=== PATIENT | male | born 1960 | race Caucasian/White ===

== ENCOUNTER 2025-03-11 06:15 | Observation (INO) ==
--- NOTE | 2025-02-19 09:21 | PAT Medication Instructions ---
Medication Instructions Date of Service February 19, 2025 Home Medications cholecalciferol (vitamin D3) 50 mcg (2,000 unit) capsule 50 mcg PO QAM gabapentin 300 mg capsule 1,200 mg PO HS magnesium 250 mg tablet 250 mg PO QAM omega 6-zew-dvj-fish oil 300 mg-1,000 mg capsule (Fish Oil) 1 cap PO QAM pyridoxine (vitamin B6) 100 mg tablet 100 mg PO QAM risankizumab-rzaa 150 mg/mL subcutaneous pen injector (Skyrizi) 150 mg subcut UD ASK your prescriber and surgeon risankizumab-rzaa 150 mg/mL subcutaneous pen injector (Skyrizi) 150 mg subcut UD STOP taking 2 weeks before surgery (or as soon as possible if surgery is within 2 weeks) omega 7-pzb-ibi-fish oil 300 mg-1,000 mg capsule (Fish Oil) 1 cap PO QAM DO NOT take the morning of surgery cholecalciferol (vitamin D3) 50 mcg (2,000 unit) capsule 50 mcg PO QAM magnesium 250 mg tablet 250 mg PO QAM pyridoxine (vitamin B6) 100 mg tablet 100 mg PO QAM Take evening before surgery gabapentin 300 mg capsule 1,200 mg PO HS MORNING OF SURGERY: NOTHING TO EAT OR DRINK AFTER MIDNIGHT Other Notes If you have any questions please call us at [phone] or [phone] or [phone] or [phone]
--- NOTE | 2025-02-28 08:45 | Anesthesiology Consultation ---
Date of Service February 28, 2025 Assessment & Plan (1) Encounter for pre-operative examination: - Infectious disease screening: Per assessment on 02/28/25- No known recent infectious disease contacts or current infectious disease symptoms. - S/P Left ESWL (11/23/24): LMA#5, [facility] - Acceptable risk for surgery pending surgeon-ordered PCP preop evaluation (Dr. Black, appt 02/28). Chart Review Chart Review: Patient seen in Pre Admission Testing Teaching & Discussion Pre-Anesthesia Teaching/Discussion Notes: Instructed NPO after midnight before surgery,except medications with 15 cc of water. Medication instructions provided according to the PAT guidelines. History Surgery Operation Date: 03/11/25 07:45 Proposed Procedures p C5-C6 Anterior Cervical Discectomy and Fusion - Benji Doll DO Height/Weight Height: 6 ft 3 in Weight: 108.7 kg Allergies Allergy/AdvReac Type Severity Reaction Status Date / Time iodine Allergy Mild Itching Verified 02/15/25 08:58 shellfish derived Allergy Mild Itching Verified 02/15/25 08:58 Medications Home Medications Medication Instructions Recorded Confirmed Last Taken cholecalciferol (vitamin D3) 50 50 mcg PO QAM 11/21/24 02/15/25 11/21/24 mcg (2,000 unit) capsule gabapentin 300 mg capsule 1,200 mg PO HS 11/21/24 02/15/25 11/22/24 magnesium 250 mg tablet 250 mg PO QAM 11/21/24 02/15/25 11/21/24 omega 6-nkq-grd-fish oil 300 1 cap PO QAM 11/21/24 02/15/25 11/21/24 mg-1,000 mg capsule (Fish Oil) pyridoxine (vitamin B6) 100 mg 100 mg PO QAM 11/21/24 02/15/25 11/21/24 tablet risankizumab-rzaa 150 mg/mL 150 mg subcut UD 02/15/25 02/15/25 Unknown subcutaneous pen injector (Saharayrizi) Past Medical History Medical History Arthritis Chronic back pain Hyperlipidemia Per PCP records Kidney stone Psoriasis Psoriatic arthritis Exercise / Class Metabolic Activity II 4-5 Yardwork/Stairs/Walk up hill Past Family History Family History Other No family history of adverse response to anesthesia Past Surgical History Surgical History H/O lumbar discectomy History of cataract surgery R/L History of cholecystectomy History of cystoscopy History of extracorporeal shockwave lithotripsy (ESWL) Left ESWL: LMA#5, [facility] (11/23/24) History of tonsillectomy and adenoidectomy History of tooth extraction S/P cervical spinal fusion x3 levels S/P epidural steroid injection Status post laser lithotripsy of ureteral calculus Past Anesthesia History No Family Hx of Anesthesia Complications and Other (Slow to wake with remote surgery, no issues with subsequent surgery/anesthesia) History of PONV No Hx of PONV and Hx of Motion Sickness Social History Smoking Status: Never smoker Do You Dip or Chew Tobacco: No Hx Alcohol Use: Yes Alcohol type: beer (2-3 drinks per day on average) Hx Substance Use: No substance use type: does not use Review of Systems Patient denies chest pain, shortness of breath, dyspnea on exertion, reflux, cough, wheezing. Physical Exam Vital Signs BP 149/85 P 62 TEMP 97.7 SP02 96%RA RESP 16 Physical Mildly decreased cervical extension range of motion. Full TMJ range of motion. TMD 3 finger breaths Mallampati Score III Dentition: intact, + implants Lungs: clear throughout to auscultation Cardiac: regular rate and rhythm, no murmurs noted Spine: normal Carotid arteries: negative bruit Extremities: no LE edema Lab Results Anesthesia Preop Results Results Anesthesia Widget: WBC 4.16 K/ul (4.8-10.8) L 02/28/25 Hgb 14.7 g/dl (14.0-18.0) 02/28/25 Hct 44.5 % (42.0-52.0) 02/28/25 Plt 225 K/uL (130-400) 02/28/25 Na 139 mmol/L (136-145) 02/28/25 K 4.4 mmol/L (3.5-5.1) 02/28/25 Cl 106 mmol/L (98-107) 02/28/25 CO2 27 mmol/L (21-32) 02/28/25 BUN 17 mg/dl (6-23) 02/28/25 Creat 1.14 mg/dl (0.6-1.4) 02/28/25 Glucose Level 112 mg/dl (70-99(Fasting)) H 02/28/25 PT 10.1 Seconds (9.0-12.0) 02/28/25 PTT 28 Seconds (21-31) 02/28/25 INR 1.0 (0.9-1.1) 02/28/25 Urine Color Yellow 02/28/25 Urine Appearance Clear (Clear) 02/28/25 Urine pH 8.0 (4.5-7.5) H 02/28/25 Urine Specific [place] 1.009 (1.000-1.030) 02/28/25 Urine Protein Negative (Negative) 02/28/25 Urine Glucose (UA) Negative (Negative) 02/28/25 Urine Ketones Negative (Negative) 02/28/25 Urine Blood Negative (Negative) 02/28/25 Urine Nitrite Negative (Negative) 02/28/25 Urine Bilirubin Negative (Negative) 02/28/25 Urine Urobilinogen Negative (Negative) 02/28/25 Urine Leukocyte Esterase Negative (Negative) 02/28/25 Blood Type A Negative 02/28/25 Antibody Screen NEGATIVE 02/28/25 Testing Electrocardiogram Date: 11/21/24 SB at 54bpm. "Otherwise normal ECG" Chest X-Ray Date: 11/21/24 Findings: + NAD
[2025-03-11] MEDS ORDERED: LIDOCAINE 2% 2 ML VIAL/AMP(20MG/ML) INFIL ONE (06:30)
[2025-03-11] MEDS ORDERED: PROPOFOL IV EMULSION 10 MG/ML 20 ML VIAL IV ONE (06:30)
[2025-03-11] MEDS ORDERED: ROCURONIUM BROMIDE 10 MG/ML 5 ML VIAL IV ONE ×2 (06:30→07:56)
[2025-03-11] MEDS ORDERED: MIDAZOLAM HCL 1 MG/ML 2ML VIAL ONE (06:31)
[2025-03-11] MEDS ORDERED: DROPERIDOL 5 MG/2 ML VIAL IV PRN (06:58)
[2025-03-11] MEDS ORDERED: HYDROmorphone INJ 2 MG/ML SYR/VIAL IV PRN (06:58)
[2025-03-11] MEDS ORDERED: ATROPINE SULFATE 0.1 MG/ML 10ML SYR IV PRN (06:58)
[2025-03-11] MEDS: LR 60ML/HR IV SCH (07:00)
[2025-03-11] MEDS: LR 15ML/HR IV SCH (07:00)
[2025-03-11] MEDS: GABAPENTIN 600 MG DOSE PO SCH (07:04)
[2025-03-11] MEDS: ACETAMINOPHEN 500 MG TAB PO SCH (07:04)
[2025-03-11] MEDS: CeleBREX 200 MG CAP PO SCH (07:04)
--- NOTE | 2025-03-11 07:44 | History & Physical Bridge Note ---
Date of Service March 11, 2025 History & Physical Bridge Note I have examined the patient, reviewed the History & Physical and in the interval since the performance of the History & Physical I have noted the following changes of clinical significance: no changes noted
--- NOTE | 2025-03-11 07:45 | History & Physical Report ---
Date of Service March 11, 2025 Assessment & Plan (1) Cervical spondylosis with radiculopathy: Plan: Anterior cervical discectomy and fusion C5-C6 History of Present Illness Chief Complaint: Neck and arm pain Primary Care Provider: Jalyn Black This is a 64-year-old male who presents with chronic persistent neck and arm pain after failing course of nonoperative care is here for surgical invention. Allergies Allergy/AdvReac Type Severity Reaction Status Date / Time iodine Allergy Mild Itching Verified 03/11/25 06:20 shellfish derived Allergy Mild Itching Verified 03/11/25 06:20 Home Medications Medication Instructions Recorded Confirmed Type cholecalciferol (vitamin D3) 50 50 mcg PO QAM 11/21/24 03/11/25 History mcg (2,000 unit) capsule gabapentin 300 mg capsule 1,200 mg PO HS 11/21/24 03/11/25 History magnesium 250 mg tablet 250 mg PO QAM 11/21/24 03/11/25 History omega 0-jhx-ulr-fish oil 300 1 cap PO QAM 11/21/24 03/11/25 History mg-1,000 mg capsule (Fish Oil) pyridoxine (vitamin B6) 100 mg 100 mg PO QAM 11/21/24 03/11/25 History tablet Past Med/Surg History Problem List (Updated 03/11/25 @ 07:45 by Benji Doll DO) Cervical spondylosis with radiculopathy Encounter for pre-operative examination Nephrolithiasis (Chronic) Medical History Arthritis Chronic back pain Hyperlipidemia Per PCP records Kidney stone Psoriasis Psoriatic arthritis Surgical History H/O lumbar discectomy History of cataract surgery R/L History of cholecystectomy History of cystoscopy History of extracorporeal shockwave lithotripsy (ESWL) Left ESWL: LMA#5, [facility] (11/23/24) History of tonsillectomy and adenoidectomy History of tooth extraction S/P cervical spinal fusion x3 levels S/P epidural steroid injection Status post laser lithotripsy of ureteral calculus Family History Other No family history of adverse response to anesthesia Social History Smoking Status: Never smoker Second Hand Exposure: Yes (in the past); Do You Dip or Chew Tobacco: No; Tobacco Cessation Education Requested by Patient: No Hx Alcohol Use: Yes Alcohol type: beer (2-3 drinks per day on average) Hx Substance Use: No Preferred Language: Wolof Communication Ability: Effective End Worker Required: No Beliefs That Will Affect Care: None Current Living Situation: Spouse Other Information That Helps Us Care for You: No Feels Safe at Home: Yes Safety Concerns: Feels Safe At This Time Assistive Devices: Glasses Physical Exam Physical Exam: Patient is alert and oriented Heart regular rhythm Lungs clear Results & Data Results & Data Vital Signs (Past 12 Hours) Vital Signs Temp Pulse Resp BP Pulse Ox O2 Del Method 03/11/25 06:34 36.6 C 68 20 148/95 H 99 Room Air
[2025-03-11] MEDS ORDERED: DEXAMETHASONE SOD INJ 4 MG/ML VIAL ONE ×2 (08:30)
[2025-03-11] MEDS ORDERED: ONDANSETRON INJ 2 MG/ML 2 ML VIAL ONE (08:30)
[2025-03-11] MEDS: FLOSEAL HEMOSTATIC MATRIX 10ML TOP ONE (08:52)
[2025-03-11] MEDS: ceFAZolin 330 MG/ML 1 GM VIAL ONE (08:53)
[2025-03-11] MEDS ORDERED: SUGAMMADEX SODIUM 200 MG/2 ML VIAL IV ONE (08:57)
--- NOTE | 2025-03-11 09:06 | Operative Report ---
Post Operative Report Pre & Post Diagnosis Operation Date: 03/11/25 07:45 Pre-Op Diagnosis: Cervical spondylosis with radiculopathy Post-Op Diagnosis: Cervical spondylosis with radiculopathy I identified the patient and participated in the time-out.: Yes Procedure Operation Date: 03/11/25 07:45 Actual Procedures #1 anterior cervical discectomy with bilateral foraminotomies C5-C6. #2 anterior cervical arthrodesis C5-C6. #3 placement of Spira integrated 8 mm cage filled with os design bone graft Surgeon Benji Doll DO Supervisor Crack Off Lynda Greco Estimated Blood Loss 50 Findings Consistent with Post-Op Diagnosis Specimens None Indications This is a 64-year-old male presents publish diagnosis of failed course of nonoperative care is here for surgical invention. Description of Procedure Patient was met with identified informed consent obtained. Patient was then taken to the operative suite underwent patient placed in supine position on the Gamal table with head Cole grease maker head. Open prominences well-padded eyes inspected to ensure no external pressure placed upon them. This point the anterior cervical spine was prepped and draped in normal sterile fashion. With assistance of fluoroscopy identified the C5-C6 disc base and a transverse incision was placed on the right anterior aspect of the cervical spine overlying this region. Blunt dissection with the assistance of bipolar electrocautery performed down to and exposing the level of C5-C6. A self retaining retractor was placed. And then performed a complete discectomy of C5-C6 out to the uncovertebral joints bilaterally. [place] distracting pins utilized to assist in visualization. Removed all posterior annular fibers longitudinal ligament bilateral foraminotomies performed. Endplates burred to subcortical bleeding bone and eight 8 mm Spira integrated cage placed and screwed into position. This was packed with os design bone graft. Incision was then copiously irrigated explored to ensure no damage to surrounding structures remaining bleeding. 10 round CHERELLE drain inserted. The incision was then closed with 2 Vicryl in the fascia and a 4 Monocryl for final skin closure. Steri-Strips and sterile dressing placed. Patient waken taken to PACU in stable condition. Please note Lynda Greco was present at the entire procedure and on the patient positioning complex portion of the surgery and final skin closure. Im ordering 10 grams of Collagen Powder ([facility] A6010 Primary Dressing) and 10 bordered super absorbent ([facility] A6196 Secondary Dressing) to treat an incision wound that was caused by a spine procedure. The incision is approximately 2 cm(W) x 4 cm(L) down to the spinal column and epidural space 2 cm (D) in size and is a full thickness wound showing no signs of infection. Collagen comes in 1 gram packets so 10 packets were ordered. Given the size of the wound, with moderate exudate I chose to order a 10 day supply. The patient will be provided instructions for proper application of the collagen wound kit. The patient will be asked to apply the collagen powder daily and then cover it with sterile dressings dispensed. Collagen was selected as I expect the collagen to attract monocytes and fibroblasts, act as a sacrificial substrate for MMPs, and ultimately proved a matrix for tissue and vessel growth. The collagen will act as a primary dressing in this scenario. It is medically necessary for proper healing of these wounds to improve bioavailability and contact with each wound surface, this is also to help prevent infection of wounds and promote healing ultimately leading to a better healing outcome and limit the risk of infection. I attest to the content of the Intraoperative Record and any orders documented therein. Any exceptions are noted below.
[2025-03-11] MEDS ORDERED: diphenhydrAMINE Capsule 25 MG CAP PO PRN (11:03)
[2025-03-11] MEDS ORDERED: dexAMETHasone 8 MG in SYRINGE 0 ML IV PRN (11:03)
[2025-03-11] MEDS ORDERED: ACETAMINOPHEN 500 MG TAB PO PRN (11:03)
[2025-03-11] MEDS ORDERED: SOD PHOSPHATE/SOD BIPHOSPHATE ENEMA 132 ML BTL PR PRN (11:03)
[2025-03-11] MEDS ORDERED: DO NOT ADMINISTER PNEUMOCOCCAL VACCINE PRN (11:03)
[2025-03-11] MEDS ORDERED: DO NOT ADMINISTER FLU VACCINE PRN (11:03)
[2025-03-11] MEDS ORDERED: MAGNESIUM HYDROXIDE SUSP 30 ML UDC PO PRN (11:03)
[2025-03-11] MEDS ORDERED: HYDROmorphone INJ 1 MG/ML SYRINGE IV PRN (11:03)
[2025-03-11] MEDS ORDERED: LORazepam 0.5 MG TAB PO PRN (11:03)
[2025-03-11] MEDS ORDERED: HYDROmorphone INJ 0.5 MG/0.5 ML SYR IV PRN (11:03)
[2025-03-11] MEDS ORDERED: ONDANSETRON INJ 2 MG/ML 2 ML VIAL IV PRN (11:03)
[2025-03-11] MEDS ORDERED: ACETAMINOPHEN 1,000 MG/100 ML VIAL IV PRN (11:03)
[2025-03-11] MEDS ORDERED: FAMOTIDINE 20 MG TAB PO PRN (11:03)
[2025-03-11] MEDS ORDERED: ONDANSETRON 4 MG OD TAB PO PRN (11:03)
[2025-03-11] MEDS ORDERED: ALUMINUM/MAGNESIUM SUSP 30 ML UDC PO PRN (11:03)
[2025-03-11] MEDS ORDERED: LORazepam Inj 0.5 MG in SYRINGE 0.25 ML IV PRN (11:03)
[2025-03-11] MEDS ORDERED: METOCLOPRAMIDE HCL INJ 5 MG/ML 2 ML VIAL IV PRN (11:03)
[2025-03-11] MEDS ORDERED: RACEPINEPHRINE 2.25% NEBU SOLN 0.5 ML VIAL INH PRN (11:03)
[2025-03-11] MEDS ORDERED: PROMETHAZINE 12.5 MG/50.5 ML BAG IV PRN (11:03)
[2025-03-11] MEDS ORDERED: NALOXONE HCL 0.4 MG/1 ML VIAL/CARP IV PRN (11:03)
--- NOTE | 2025-03-11 11:10 | Fluoroscopy Report ---
FL cervical 2-3V CLINICAL HISTORY: ACDF C5-C6 COMPARISON STUDY: None FLUOROSCOPY TIME: 6 seconds FLUOROSCOPY IMAGES: 2 EXPOSURE DOSE: 0.6 mGy FINDINGS: Fluoroscopy was provided for lower cervical instrumented fusion. IMPRESSION: Intraoperative fluoroscopy. ACT 112: Negative or not required by law. Electronically signed by: Nadir Brunson M.D. 03/11/2025 11:09 AM
[2025-03-11] MEDS: SODIUM CHLORIDE 0.9% 1,000 ML IV SCH (11:40)
--- NOTE | 2025-03-11 12:40 | Anesthesiology Progress Note ---
Date of Service March 11, 2025 Anesthesia Post Procedure Vital Signs Vital Signs: Temp Pulse Pulse Resp BP Pulse Ox O2 Del Method 03/11/25 11:25 36.3 C L 77 15 137/82 93 Room Air 03/11/25 11:10 73 16 94 Room Air 03/11/25 11:00 36.2 C L 77 16 119/73 94 Room Air 03/11/25 10:55 36.3 C L 78 16 152/90 H 93 Room Air 03/11/25 10:45 70 14 142/77 H 96 Nasal Cannula 03/11/25 10:30 72 15 145/78 H 95 Nasal Cannula 03/11/25 10:20 74 15 153/81 H 96 Nasal Cannula 03/11/25 10:10 36.5 C 80 14 147/88 H 97 Nasal Cannula 03/11/25 10:00 72 15 139/82 96 Nasal Cannula 03/11/25 09:50 75 14 142/75 H 96 Nasal Cannula 03/11/25 09:40 84 16 143/81 H 98 Nasal Cannula 03/11/25 09:30 87 19 126/74 97 Nasal Cannula 03/11/25 09:23 36 C L 90 16 179/92 H 98 Nasal Cannula 03/11/25 06:34 36.6 C 68 20 148/95 H 99 Room Air O2 Flow Rate 03/11/25 11:25 03/11/25 11:10 03/11/25 11:00 03/11/25 10:55 03/11/25 10:45 03/11/25 10:30 03/11/25 10:20 03/11/25 10:10 03/11/25 10:00 03/11/25 09:50 03/11/25 09:40 3 03/11/25 09:30 3 03/11/25 09:23 3 03/11/25 06:34 Pain Intensity Bilateral Shoulder: Pain Intensity: 2 Neck: Pain Intensity: 2 Transfer of Care Handoff Completed per policy Notes Mental Status: alert / awake / arousable Patient Amnestic to Procedure: Yes Nausea / Vomiting: adequately controlled Pain: adequately controlled Airway Patency, RR, SpO2: stable & adequate BP & HR: stable & adequate Hydration State: stable & adequate Anesthetic Complications: no major complications apparent
[2025-03-11] MEDS: GABAPENTIN 400 MG CAP PO SCH (20:11)
[2025-03-11] MEDS: DOCUSATE SODIUM/SENNA 50/8.6MG TAB PO SCH (20:54)
[2025-03-12] MEDS: POLYETHYLENE (MIRALAX) 17 GM PACK PO SCH (06:05)
[2025-03-12 08:02] VITALS: BP 152/77; PULSE 73; RESP 18; TEMP 98.1; O2SAT 94
[2025-03-12] MEDS: PYRIDOXINE HCL 50 MG TAB PO SCH (09:14)
[2025-03-12] MEDS: CHOLECALCIFEROL 25 MCG (1000 UNITS) TAB PO SCH (09:15)
[2025-03-12] MEDS: MAGNESIUM OXIDE 400 MG TAB PO SCH (09:15)
[2025-03-12] MEDS: dexAMETHasone 6 MG in SYRINGE 0 ML IV SCH (09:16)
--- NOTE | 2025-03-12 09:38 | Discharge Summary ---
Date of Service March 12, 2025 Admission HPI Per Admitting Provider This is a 64-year-old male who presents with chronic persistent neck and arm pain after failing course of nonoperative care is here for surgical invention. Principal Diagnosis Cervical spondylosis with radiculopathy Discharge Data Allergies Allergy/AdvReac Type Severity Reaction Status Date / Time iodine Allergy Mild Itching Verified 03/11/25 06:20 shellfish derived Allergy Mild Itching Verified 03/11/25 06:20 Procedures Performed Operation Date: 03/11/25 07:45 Actual Procedures p C5-C6 Anterior Cervical Discectomy and Fusion(Not Applicable) - Benji Doll DO Ordered Studies 03/11/25 07:45 [place] cervical 2-3V Routine Hospital Course (1) Cervical spondylosis with radiculopathy: Patient underwent anterior cervical discectomy and fusion tolerated this well was taken to the orthopedic floor postoperative postop day #1 he is up and ambulating. Swallowing well. No hoarseness. Excellent strength testing. Pain well-controlled. CHERELLE drain decreasing. Subsequent discharge home. Discharge orders instructions from the chart for further review. Total Time Total Time Spent Total Time Spent (In Minutes): 20 minutes Discharge Plan Discharge Items Patient Disposition: Home - Self-Care Reason For Visit: Cervical Spondylosis, Cervical Disc Disease, Cervi Discharge Diagnosis: Cervical spondylosis with radiculopathy Activity: As commented below Non-emergency contact: Primary Care Provider Call non-emergency contact if: you have any medication questions Follow-up/Referrals: Jalyn Black D.O. [Primary Care Provider] - Diet: Regular Addtl Attending Provider Instructions: ACTIVITY RECOMMENDATIONS: SELF CARE INSTRUCTIONS AFTER CERVICAL FUSIONS 1. No smoking. Smoking drastically decreases the chance of a solid fusion. 2. No bending, lifting more than 5 pounds, or twisting (roll like a log when turning in bed). 3. You may shower 3 days after surgery. Thoroughly dry wound. Do not soak in the tub. 4. Cervical collar: Must be worn at all times including sleeping. You may remove the brace only to bath, eat and if you are sitting in a recliner. 5. Please walk as much as you can for exercise. Gradually increase the distance that you walk as your endurance increases. 6. You may return to previous diet. SPECIAL CARE INSTRUCTIONS: VERY IMPORTANT TO READ AND REVIEW A. Do not take any anti-inflammatory medications (i.e. Indocin, Advil, Aspirin, Naprosyn, Aleve, Motrin, etc.) as these may inhibit the chance of a solid fusion. Tylenol is okay to take. B. Your surgical incision has been closed with a cosmetic suture under the skin that will dissolve in about 6 weeks. In 14 days, you can use a pair of clean scissors and cut the suture that is left outside of the skin at the ends of your incision. C. Complications are uncommon, but please contact us if you have any signs or symptoms of: 1. wound infection (fever higher than 102.5 degrees F, redness, separation of wound, drainage, or increasing pain from the incision) 2. blood clots in legs (pain, swelling, redness and warmth in legs) 3. urinary tract infection (fever higher than 102.5 degrees, burning upon urination or increased frequency of urination) 4. nerve problems (inability to walk on your toes or heels, numbness, loss of bowel or bladder control) 5. any other symptoms that concern you. D. Please call the office at if you have any concerns or questions about your operation or recovery. MANAGING PAIN AFTER SPINAL SURGERY 1. Narcotic medication is intended for short-term use and will be provided for surgical pain. Surgical pain usually lasts for a period of 4-6 weeks. Narcotic medication includes Percocet, Vicodin, Darvocet, Tylenol #3 or Lortab. 2. Longer-term pain is more appropriately treated with non-narcotic medication such as Tylenol ES. 3. Muscle spasm is not appropriately treated with narcotics. Muscle relaxers such as Soma, Flexeril or Skelaxin can be used along with Tylenol ES. 4. Remember that we all live with some "aches and pains". This is not unusual or uncommon after an injury or as we get older. 5. We will provide appropriate medication within the normal guidelines of their prescribed use. We will also be very cautious and aware of potential abuse and extended duration of patients' medication needs. 6. Please allow 2-3 days to process refills. Prescriptions will not be mailed but must be picked up at the office. FOLLOW UP VISIT: Keep your scheduled follow-up appointment. Any questions, please call the office at . Pending Studies at Discharge: No Stand-Alone Forms: My [facility] [employer], Smoking Cessation Medications and DC Order Prescriptions: New tramadol 50 mg tablet 50 mg PO Q6H PRN (Reason: pain, moderate) Qty: 30 0RF oxycodone 5 mg tablet 5 mg PO Q6H PRN (Reason: pain) Qty: 30 0RF Continued gabapentin 300 mg capsule 1,200 mg PO HS magnesium 250 mg tablet 250 mg PO QAM omega 3-kic-rcm-fish oil [Fish Oil] 300-1,000 mg capsule 1 cap PO QAM pyridoxine (vitamin B6) 100 mg tablet 100 mg PO QAM cholecalciferol (vitamin D3) 50 mcg (2,000 unit) capsule 50 mcg PO QAM Discharge Orders: Discharge Order (Routine); Ordered 03/12/25 Ordered By: Benji Doll Admission Data Admit Date/Time: 03/11/25 09:09 Attending Provider: Benji Doll Admit Provider: Benji Doll Primary Care Provider: Jalyn Black
== END 2025-03-12 11:10 | disposition home or self-care (01) ==
LOC: 3E 06:15 → ASU 06:15